=== PATIENT | female | born 1950 | race Caucasian/White ===

== ENCOUNTER 2023-05-30 13:34 | Observation (INO) | payer MEDICARE ==
[~2023-05-30] VITALS: Ht 160 cm; Wt 73.1 kg
[~2023-05-30 13:34] MED LIST: ATOR10TA70 PO; BETA1TAB18 PO; CALC600T22 PO; FISH OIL; FLAXSEED OIL; LISI1TAB49 PO; MVI; POTA-188 PO; SUPER B-COMPLEX; TURMERIC; VITAMIN D3
[2023-05-30 14:16] LABS: BASOPHILS % (AUTO) 0.7 % (0-1); EOSINOPHILS # (AUTO) 0.2 X10'3 (0-0.9); EOSINOPHILS % (AUTO) 2.5 % (0-6); HEMATOCRIT 43.1 % (35.0-45.0); HEMOGLOBIN 14.5 g/dl (12.0-16.0); LYMPHOCYTES % (AUTO) 15.6 % (21-51); MEAN CORPUSCULAR HEMOGLOBIN 32.1 PG (27.0-31.0); MEAN CORPUSCULAR HGB CONC 33.8 g/dL (33.0-36.5); MEAN CORPUSCULAR VOLUME 95.1 FL (78-98); MEAN PLATELET VOLUME 7.5 FL (7.4-10.4); MONOCYTES # (AUTO) 0.5 X10'3 (0-0.9); MONOCYTES % (AUTO) 8.6 % (2-12); NEUTROPHILS # (AUTO) 4.6 X10'3 (1.8-7.7); NEUTROPHILS % (AUTO) 72.6 % (42-75); PLATELET COUNT 264 X10'3 (140-440); RED BLOOD COUNT 4.53 X10'6 (4.20-5.60); RED CELL DISTRIBUTION WIDTH 12.9 % (11.5-14.5); WHITE BLOOD COUNT 6.3 X10'3 (4.5-11.0)
[2023-05-30 14:39] LABS: ALBUMIN 3.9 G/DL (3.4-5.0); ANION GAP 11 (8-16); BLOOD UREA NITROGEN 19 MG/DL (7-18); CALCIUM 9.1 MG/DL (8.5-10.1); CHLORIDE 104 MMOL/L (99-107); CREATININE 0.73 MG/DL (0.40-0.90); GLUCOSE 102 MG/DL (70-104); POTASSIUM 3.9 MMOL/L (3.5-5.1); PRO BRAIN NATRIURETIC PEPTIDE 42 PG/ML (0-450); SODIUM 142 MMOL/L (135-145); TOTAL CARBON DIOXIDE 27.5 MMOL/L (24-32); eCRCL 55 ML/MIN; eGFR 78 ML/MIN
[2023-05-30] MEDS ORDERED: potassium Cl 40MEQ/1/2NS 520ml 520 ML IV PRN (17:30)
[2023-05-30] MEDS ORDERED: mag hydrox/Alum hydrox/simeth 30ml oral suspension PO PRN (17:30)
[2023-05-30] MEDS ORDERED: magnesium 4gm in 100ml NS 100 ML IV PRN (17:30)
[2023-05-30] MEDS ORDERED: magnesium hydroxide 30ml (MOM) UD suspension PO PRN (17:30)
[2023-05-30] MEDS ORDERED: magnesium 2GM in 50ml NS 50 ML IV PRN (17:30)
[2023-05-30] MEDS ORDERED: ondansetron/PF 4mg/2ml inj IV PRN (17:30)
[2023-05-30] MEDS ORDERED: magnesium Cl slow-release 64mg tablet PO PRN (17:30)
[2023-05-30] MEDS ORDERED: potassium Cl 20 mEq SR tablet PO PRN ×2 (17:30)
[2023-05-30] MEDS ORDERED: acetaminophen 325mg tablet PO PRN (17:30)
[2023-05-30] MEDS ORDERED: nitroGLYCERIN 0.4mg SUBLingual tab SL PRN (18:00)
[2023-05-30] MEDS ORDERED: hydrALAZINE 20mg/ml inj. IV PRN (18:00)
[2023-05-30] MEDS ORDERED: aminophylline 250mg/10ml inj. IV PRN (18:00)
[2023-05-30] MEDS ORDERED: metoprolol tartrate 1mg/ml inj IV PRN (18:00)
[2023-05-30] MEDS: aspirin 325mg tablet, delayed-release (Ecotrin) PO ONE (18:09)
[2023-05-30] MEDS: amLODIPine 5mg tablet PO ONE (18:09)
[2023-05-30] MEDS ORDERED: ASPI-1265 PO (18:51)
[2023-05-30] MEDS ORDERED: ATOR20TA66 PO (18:51)
[2023-05-30] MEDS: K and/or MAG REPLACEMENT MC SCH (19:58)
[2023-05-30] MEDS: heparin, porcine 5000 units/ml vial SQ SCH (20:03)
[2023-05-30 21:35] VITALS: BP 139/55; PULSE 61; RESP 18; TEMP 96.8; O2SAT 73; O2SAT 95
[2023-05-31] VITALS (13 sets, daily range): BP systolic 90–131; BP diastolic 54–83; PULSE 61–88; RESP 16–22; TEMP 96.8–97.9; O2SAT 93–98
[2023-05-31 07:56] LABS: BASOPHILS # (AUTO) 0.1 X10'3 (0-0.2); BASOPHILS % (AUTO) 1.2 % (0-1); EOSINOPHILS # (AUTO) 0.4 X10'3 (0-0.9); EOSINOPHILS % (AUTO) 6.8 % (0-6); HEMATOCRIT 43.3 % (35.0-45.0); HEMOGLOBIN 14.7 g/dl (12.0-16.0); LYMPHOCYTES # (AUTO) 1.1 X10'3 (1.1-4.8); LYMPHOCYTES % (AUTO) 19.4 % (21-51); MEAN CORPUSCULAR HEMOGLOBIN 32.5 PG (27.0-31.0); MEAN CORPUSCULAR VOLUME 95.7 FL (78-98); MONOCYTES # (AUTO) 0.6 X10'3 (0-0.9); NEUTROPHILS # (AUTO) 3.6 X10'3 (1.8-7.7); NEUTROPHILS % (AUTO) 61.6 % (42-75); PLATELET COUNT 249 X10'3 (140-440); RED BLOOD COUNT 4.52 X10'6 (4.20-5.60); WHITE BLOOD COUNT 5.8 X10'3 (4.5-11.0)
[2023-05-31] MEDS: lisinopril 10 MG tablet PO SCH (08:00)
[2023-05-31] MEDS: aspirin 81mg tab.chew PO SCH (08:12)
[2023-05-31] MEDS: atorvastatin 20mg tablet PO SCH (08:12)
[2023-05-31 08:21] LABS: ALBUMIN 3.6 G/DL (3.4-5.0); ANION GAP 12 (8-16); BLOOD UREA NITROGEN 20 MG/DL (7-18); BUN/CREATININE RATIO 28.6 (10.0-20.0); CALCIUM 8.9 MG/DL (8.5-10.1); CHLORIDE 106 MMOL/L (99-107); CHOL/HDL RATIO 3.3 (0.00-4.99); CHOLESTEROL 192 MG/DL (0-200); GLUCOSE 87 MG/DL (70-104); HDL CHOLESTEROL 58 MG/DL (35-60); LDL CHOLESTEROL 107 MG/DL (50-100); MAGNESIUM 2.1 MG/DL (1.5-2.4); SODIUM 142 MMOL/L (135-145); TOTAL CARBON DIOXIDE 24.5 MMOL/L (24-32); TRIGLYCERIDES 140 MG/DL (20-135); eCRCL 57 ML/MIN; eGFR 82 ML/MIN
[2023-05-31] MEDS: regadenoson 0.4mg/5ml syringe IV PRN (10:21)
[2023-05-31 12:21] LABS: HEMOGLOBIN A1C 5.4 % (4.5-6.2)
[2023-05-31] MEDS ORDERED: METO50TA16 PO (13:22)
== END 2023-05-31 15:28 | disposition home or self-care (01) ==
LOC: ER 13:35 → ED HOLD 17:34 → PCU 3S 21:35
PROVIDERS: ADMIT Family Medicine; ATTEND Family Medicine
DX: I16.0 Hypertensive urgency (principal); I10 Essential (primary) hypertension; E78.5 Hyperlipidemia, unspecified; E78.00 Pure hypercholesterolemia, unspecified; Z90.710 Acquired absence of both cervix and uterus; Z96.651 Presence of right artificial knee joint; Z90.49 Acquired absence of other specified parts of digestive tract; Z79.899 Other long term (current) drug therapy
CPT/HCPCS: 36415; 71045; 78452; 80048; 80061; 83036; 83735; 83880; 84484; 85025; 87081; 93005; 93017; 93306; 96372; 99291; A9500; G0378; J1644; J2785